=== PATIENT | male | born 1960 | race Two or more races ===

== ENCOUNTER 2024-08-24 19:57 | Inpatient (IN) | payer OTHER ==
[~2024-08-24] VITALS: Ht 165.1 cm; Wt 62.1 kg
[2024-08-24] MEDS ORDERED: TAMSULOSIN HCL0.4 MG PO (20:54)
[2024-08-24] MEDS ORDERED: NORVASC5 MG PO (20:55)
[2024-08-24] MEDS ORDERED: LIPITOR20 MG PO (20:55)
[2024-08-24] MEDS ORDERED: KAPSPARGO SPRIN50 MG PO (20:55)
--- NOTE | 2024-08-24 20:57 | NUR ---
PACIENTE REFIERE HEMATURIA Y DOLOR LEVE EN AMBOS FLANCOS DESDE HOY
--- NOTE | 2024-08-24 23:01 | NUR ---
NIKKI HERNANDEZ EDUCA A PACIENTE SOBRE PROCESO DE AMANDA DE MUESTRAS Y CANALIZACION, REFIERE ENTENDER. SE EJECUTAN ORDENES BAJO MEDIDAS ASEPTICAS. PENDIENTE A CT.
[2024-08-24 23:09] LABS: HEMATOCRIT 46.9 % (39.0-48.0); HEMOGLOBIN 16.2 g/dL (13-16.00); MEAN CELL VOLUME 86.2 fL (80.0-100.00); MEAN CORPUSCULAR HEMOGLOBIN 29.8 pg (27.00-32.0); MEAN CORPUSCULAR HGB CONC 34.6 g/dl (32.0-36.0); PLATELET COUNT 286 K/uL (150-450); RED BLOOD COUNT 5.44 M/uL (4.00-6.00); RED CELL DISTRIBUTION WIDTH 13.3 % (11.5-14.5)
[2024-08-24 23:53] LABS: URINE APPEARANCE Cloudy; URINE BILIRRUBIN Moderate (NEGATIVE); URINE BLOOD Small; URINE COLOR Red; URINE GLUCOSE Negative (NEGATIVE); URINE KETONE 15 (NEGATIVE); URINE LEUKOCYTE Large; URINE NITRATE Positive; URINE UROBILINOGEN 0.2 E.U./dl
[2024-08-24 23:58] LABS: URINE BACTERIA 7960.8 uL (0.0-1933); URINE EPITHELIAL CELLS 2.5 uL (0.0-38.8); URINE WBC 644.5 uL (0.0-23.2)
[2024-08-25 00:15] LABS: URINE PROTEIN 100 (NEGATIVE); URINE RBC > 10558.9 uL (0.0-20.8)
[2024-08-25 00:16] LABS: URINE CAST 0.91 uL (0.0-1.40)
[2024-08-25] MEDS ORDERED: CIPROFLOXACIN IN 5 % DEXTROSE 400 MG/200 ML PIGGYBAG IV ONE ×2 (00:45→01:09)
[2024-08-25] MEDS ORDERED: FAMOtidine 10 MG/ML (4ML VIAL) IV ONE (00:45)
[2024-08-25 01:02] LABS: INR 1.04; PARTIAL THROMBOPLASTIN TIME 25.1 SECONDS (22.0-34.0); PROTHROMBIN TIME 11.3 SECONDS (9.0-11.5)
[2024-08-25 01:06] LABS: ALBUMIN 3.8 gm/dL (3.4-5.0); BILIRUBIN TOTAL 0.67 mg/dL (0.3-1.2); CALCIUM 8.8 mg/dL (8.5-10.1); CREATININE SERUM 0.94 mg/dL (0.70-1.30); GFR 80.29; GLOBULINA 3.2 G/DL (2.4-3.5); POTASSIUM 3.72 mEq/L (3.5-5.1)
[2024-08-25] MEDS ORDERED: FAMOTIDINE/PF 20 MG/2 ML VIAL ONE (01:09)
--- NOTE | 2024-08-25 04:20 | NUR ---
SE COLOCA SONDA URINARIA BAJO MEDIDAS ASEPTICAS. SE ENCUENTRA PATENTE, BAJANDO A GRAVEDAD CON EGRESO URINARIO CON HEMATURIA. SE NOTIFICA A
--- NOTE | 2024-08-25 05:23 | NUR ---
PTE CON ORDEN DE LAB PSA. EL SYSTEMA CANCELA ORDEN POR ER, SE LLAMA A LABORATORIO PARA VERIFICAR SI SE PUEDE ENVIA BAJO MISCELANEO CUAL REFIERE QUE NO.
--- NOTE | 2024-08-25 07:34 | NUR ---
PTE ALERTA Y ORIENTADO X 3 ESFERAS EN CESAR CON BARANDAS ELEVADAS,EN COMPANIA DE FAMILIAR,AREA DE VENOPUNCION PATENTE Y JENNIFER DE EDEMA,RUSHING QUE PRESENTA HEMATURIA,SE REPITE CBC BAJO MEDIDAS ASEPTICAS,SE SRAVANTHI BAJO OBSERVACION.
[2024-08-25 07:36] LABS: HEMOGLOBIN 15.7 g/dL (13-16.00); MEAN CELL VOLUME 85.2 fL (80.0-100.00); MEAN CORPUSCULAR HEMOGLOBIN 29.6 pg (27.00-32.0); MEAN CORPUSCULAR HGB CONC 34.8 g/dl (32.0-36.0); PLATELET COUNT 239 K/uL (150-450); RED BLOOD COUNT 5.29 M/uL (4.00-6.00); RED CELL DISTRIBUTION WIDTH 13.1 % (11.5-14.5)
[2024-08-25] MEDS ORDERED: ATORVASTATIN CALCIUM 20 MG TABLET PO SCH (12:22)
[2024-08-25] MEDS ORDERED: METOPROLOL TARTRATE 50 MG TABLET PO SCH (12:22)
[2024-08-25] MEDS ORDERED: AMLODIPINE BESYLATE 5 MG TABLET PO SCH (12:22)
[2024-08-25] MEDS ORDERED: 0.9 % SODIUM CHLORIDE 1,000 ML IV SCH (12:30)
[2024-08-25] MEDS ORDERED: MEPERIDINE HCL/PF 50 MG/ML VIAL IM PRN (12:30)
[2024-08-25] MEDS ORDERED: FAMOTIDINE/PF 20 MG/2 ML VIAL IV NR (14:00)
[2024-08-25] MEDS ORDERED: CIPROFLOXACIN IN 5 % DEXTROSE 400 MG/200 ML PIGGYBAG IV NR (14:00)
[2024-08-25 18:02] VITALS: BP 126/75; O2SAT 98
[2024-08-25] MEDS ORDERED: FAMOTIDINE/PF 20 MG in 0.9 % SODIUM CHLORIDE 8 ML IV PUSH SCH (21:00)
[2024-08-25] MEDS ORDERED: CIPROFLOXACIN IN 5 % DEXTROSE 200 ML IV SCH (21:00)
[2024-08-26 02:41] VITALS: BP 125/78; O2SAT 97
[2024-08-26 08:34] VITALS: BP 128/82
[2024-08-26] MEDS ORDERED: AMLODIPINE BESYLATE 5 MG TABLET PO SCH (12:00)
[2024-08-26 12:48] LABS: HEMATOCRIT 47.4 % (39.0-48.0); HEMOGLOBIN 16.1 g/dL (13-16.00); MEAN CELL VOLUME 86.8 fL (80.0-100.00); MEAN CORPUSCULAR HEMOGLOBIN 29.5 pg (27.00-32.0); PLATELET COUNT 279 K/uL (150-450); RED BLOOD COUNT 5.46 M/uL (4.00-6.00); RED CELL DISTRIBUTION WIDTH 13.2 % (11.5-14.5)
[2024-08-26 13:31] LABS: BILIRUBIN TOTAL 0.62 mg/dL (0.3-1.2); CALCIUM 9.3 mg/dL (8.5-10.1); CREATININE SERUM 0.85 mg/dL (0.70-1.30); GFR 90.18; GLOBULINA 3.2 G/DL (2.4-3.5); POTASSIUM 4.19 mEq/L (3.5-5.1); TOTAL PROTEIN 7.2 gm/dL (6.4-8.2)
[2024-08-26] MEDS ORDERED: RISEDRONATE SO150 MG (13:41)
[2024-08-26 16:53] VITALS: BP 129/84
[2024-08-26 16:54] VITALS: BP 129/84
[2024-08-26] MEDS ORDERED: LACTOBACILLUS ACIDOPHILUS 1 CAP CAP PO SCH (17:00)
[2024-08-26] MEDS ORDERED: ATORVASTATIN CALCIUM 20 MG TABLET PO SCH (21:00)
[2024-08-26] MEDS ORDERED: TAMSULOSIN HCL 0.4 MG CAP PO SCH (21:00)
[2024-08-27 00:53] VITALS: BP 113/72; O2SAT 97
[2024-08-27 07:09] LABS: T4 FREE 0.98 NG/ML (0.76-1.46); TSH 2.05 uIU/mL (0.358-3.74)
[2024-08-27 08:35] VITALS: BP 163/82; O2SAT 97
[2024-08-27 10:04] LABS: % FREE PSA 15.4 % (.); free psa 0.94 ng/mL; total psa 6.1 ng/mL (0.0-4.0)
[2024-08-27] MEDS ORDERED: CIPRO500 MG PO (13:30)
[2024-08-27] MEDS ORDERED: INTESTINEX680 M1 PO (13:30)
[2024-08-27] MEDS ORDERED: TAMS0.4C PO (13:30)
== END 2024-08-27 13:58 | disposition home or self-care (01) | DRG 690 ==
LOC: ER 20:00 → MEDI 08-25 12:29
PROVIDERS: General Practice; ADMIT Internal Medicine; ATTEND Internal Medicine
PROC: BW21YZZ Computerized Tomography (CT Scan) of Abdomen and Pelvis using Other Contrast (ICD-10-PCS; principal; 2024-08-24)
DX: N39.0 Urinary tract infection, site not specified (principal); E78.5 Hyperlipidemia, unspecified; I10 Essential (primary) hypertension; R31.0 Gross hematuria; N40.1 Benign prostatic hyperplasia with lower urinary tract symptoms; N13.8 Other obstructive and reflux uropathy; N35.819 Other urethral stricture, male, unspecified site

== ENCOUNTER 2025-03-31 01:58 | Emergency (ER) | payer OTHER ==
[~2025-03-31] VITALS: Ht 165.1 cm; Wt 62.1 kg
[~2025-03-31 01:58] MED LIST: CIPRO500 MG PO; INTESTINEX680 M1 PO; KAPSPARGO SPRIN50 MG PO; LIPITOR20 MG PO; NORVASC5 MG PO; RISEDRONATE SO150 MG; TAMS0.4C PO; TAMSULOSIN HCL0.4 MG PO
[2025-03-31] MEDS ORDERED: PROSCAR5 MG PO (02:16)
[2025-03-31] MEDS ORDERED: ACETAMINOPHEN 500 MG GEL..CAP PO STA (05:19)
[2025-03-31 05:48] LABS: BASO % 0.6 % (0.1-1.2); EOS # 0.16 (0.04-0.54); EOS % 2.6 % (0.7-7.0); LYMPH # 1.04 (1.18-3.74); LYMPH % 16.7 % (19.3-53.1); MEAN PLATELET VOLUME 9.10 fl (9.4-12.4); MONO # 0.87 (0.24-0.82); NEUT # 4.07 (1.56-6.13); NEUT % 65.6 % (34.0-71.1); RED CELL DISTRIBUTION WIDTH 11.9 % (11.6-14.4)
[2025-03-31 05:49] LABS: URINE APPEARANCE Clear; URINE BILIRRUBIN Negative (NEGATIVE); URINE BLOOD Large; URINE COLOR Yellow; URINE GLUCOSE Negative (NEGATIVE); URINE KETONE Negative (NEGATIVE); URINE LEUKOCYTE Trace; URINE NITRATE Negative; URINE PROTEIN Negative (NEGATIVE); URINE UROBILINOGEN 0.2 E.U./dl
[2025-03-31 05:53] LABS: URINE BACTERIA 92.3 uL (0.0-1933); URINE EPITHELIAL CELLS 7.5 uL (0.0-38.8); URINE RBC 15.8 uL (0.0-20.8); URINE WBC 74.1 uL (0.0-23.2)
[2025-03-31 06:00] LABS: COVID-19 AG POSITIVE (NEGATIVE)
[2025-03-31 06:01] LABS: URINE CAST 0.00 uL (0.0-1.40)
[2025-03-31 06:02] LABS: MONO % 14.0 % (4.7-12.5)
[2025-03-31] MEDS ORDERED: CIPRO500 MG PO (06:28)
== END 2025-03-31 07:25 ==
LOC: ER 01:58
PROVIDERS: General Practice
DX: U07.1 COVID-19 (principal); R30.0 Dysuria; N39.0 Urinary tract infection, site not specified; R50.9 Fever, unspecified; Z20.822 Contact with and (suspected) exposure to COVID-19; Z88.0 Allergy status to penicillin; Z88.5 Allergy status to narcotic agent; Z88.6 Allergy status to analgesic agent